=== PATIENT | female | born 2000 | race African-American/Black ===

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

== ENCOUNTER 2018-04-11 21:34 | Emergency (ER) | payer BC ==
[2018-04-11 21:55] VITALS: BP 141/76
[2018-04-11] MEDS ORDERED: FAMOTIDINE 20 MG TABLET PO ONE (22:24)
[2018-04-11] MEDS ORDERED: ASPIRIN 81 MG TABLET, CHEWABLE PO ONE (22:24)
--- NOTE | 2018-04-11 22:28 | ER Document Report ---
ED Cardiac - General Chief Complaint: Chest Pain Stated Complaint: CHEST PAIN Time Seen by Provider: 04/11/18 22:17 Notes: Patient is a 17-year-old female with a history of morbid obesity and congestive heart failure that comes emergency department for chief complaint of chest pain that is intermittent and over the left side of her chest and back for the past 3 -4 days. She states pain is worse with movement. She denies cough, nausea, vomiting, shortness of breath. She does report belching frequently. She is moving her bowels normally. She denies injury. She is compliant with her medications (lasix, metoprolol, metformin, synthroid). She denies smoking, alcohol, or recreational drugs. TRAVEL OUTSIDE OF THE [place] IN LAST 30 DAYS: No - Related Data Allergies/Adverse Reactions: No Known Allergies Allergy (Unverified 05/05/17 04:58) Past Medical History - General Information source: Patient - Social History Smoking Status: Never Smoker Frequency of alcohol use: None Drug Abuse: None Lives with: Family Family History: Reviewed & Not Pertinent - Past Medical History Cardiac Medical History: Reports: Hx Congestive Heart Failure, Hx Hypertension Endocrine Medical History: Reports: Hx Diabetes Mellitus Type 2 Renal/ Medical History: Denies: Hx Peritoneal Dialysis Past Surgical History: Reports: Hx Orthopedic Surgery - left leg - Immunizations Immunizations up to date: Yes Hx Diphtheria, Pertussis, Tetanus Vaccination: Yes Review of Systems - Review of Systems Constitutional: No symptoms reported EENT: No symptoms reported Cardiovascular: See HPI Respiratory: No symptoms reported Gastrointestinal: See HPI Genitourinary: No symptoms reported Female Genitourinary: No symptoms reported Musculoskeletal: See HPI Skin: No symptoms reported Hematologic/Lymphatic: No symptoms reported Neurological/Psychological: No symptoms reported Physical Exam - Vital signs Vitals: Temp Pulse Resp BP Pulse Ox 98.7 F 69 20 141/76 H 98 04/11/18 21:53 04/11/18 21:53 04/11/18 21:53 04/11/18 21:53 04/11/18 21:53 - General General appearance: Appears well In distress: None - HEENT Head: Normocephalic, Atraumatic Eyes: Normal Conjunctiva: Normal Extraocular movements intact: Yes Eyelashes: Normal Pupils: PERRL Mouth/Lips: Normal Mucous membranes: Normal Pharynx: Normal Neck: Normal - Respiratory Respiratory status: No respiratory distress Chest status: Pain on movement Breath sounds: Normal. No: Decreased air movement, Rales, Wheezing - Cardiovascular Rhythm: Regular. No: Tachycardia Heart sounds: Normal auscultation, S1 appreciated, S2 appreciated - Abdominal Inspection: Normal Tenderness: Nontender. No: Tender, McBurney's point, Fitzpatrick's sign, Guarding - Back Back: Normal, Nontender. No: Tender - Extremities General upper extremity: Normal inspection, Nontender, Normal ROM, Normal strength General lower extremity: Normal inspection, Nontender, Normal ROM, Normal strength. No: Edema - Neurological Neuro grossly intact: Yes Cognition: Normal Orientation: AAOx4 [place] Coma Scale Eye Opening: Spontaneous Artur Coma Scale Verbal: Oriented Artur Coma Scale Motor: Obeys Commands Artur Coma Scale Total: 15 Speech: Normal Cranial nerves: Normal Cerebellar coordination: Normal Motor strength normal: LUE, RUE, LLE, RLE Sensory: Normal - Psychological Associated symptoms: Normal affect, Normal mood - Skin Skin Temperature: Warm Skin Moisture: Dry Skin Color: Normal Course - Re-evaluation Re-evalutation: Patient is smiling and well-appearing on exam. Appears to have reproducible symptoms with her movements. She states her school backpack is very heavy, she also has non specific pains which are mild in her back with movement. No abdominal tenderness. No signs of distress. No tachycardia, hypotension, or fever. EKG shows sinus arrhythmia at a rate of 61. QTC is 419. HI interval is 200. Slightly inverted T-wave in lead III. No T-wave inversions or ST segment changes in consecutive leads. Patient with atypical symptoms going on for days, because of her multiple risk factors including severe obesity, CHF, type 2 diabetes a full cardiac workup was performed. Her heart score is 2. 2 sets of negative cardiac enzymes. Very low suspicion of PE, ACS, or dissection based on presentation, symptoms, workup. Discussed results with patient and parents. They request to be discharged home with treatment for her pain in her chest and back (which is mild). They do agree to follow-up with her button buttonhole marker on Saturday for additional evaluation and management. Discussed return precautions in detail, patient and family state understanding and agreement with plan. - Vital Signs Vital signs: Temp Pulse Resp BP Pulse Ox 98.7 F 69 16 141/76 H 97 05/11/18 21:53 04/11/18 21:53 04/12/18 02:00 04/11/18 21:53 04/12/18 02:00 - Laboratory Result Diagrams: 04/11/18 22:50 04/11/18 22:50 Laboratory results interpreted by me: 04/11/18 04/11/18 22:50 22:50 RDW 14.1 H Carbon Dioxide 32 H Discharge - Discharge Clinical Impression: Chest wall pain Chest pain Qualifiers: Chest pain type: unspecified Qualified Code(s): R07.9 - Chest pain, unspecified Condition: Stable Disposition: HOME, SELF-CARE Additional Instructions: Your workup tonight does not show any concerning findings. Your symptoms, exam, and workup are most suggestive of your chest wall being the cause of your pain. Use a muscle relaxer as prescribed if needed, you can apply heat to your chest wall. This should gradually resolve. Follow-up with your button buttonhole marker on Saturday for close follow-up and additional management. Return for any concerning or worsening symptoms including passing out, difficulty breathing, increased pain, or any other concerning or worsening symptoms. Prescriptions: Methocarbamol [Robaxin 750 mg Tablet] 750 mg PO Q6 #20 tablet Referrals: SHAHID FORREST DO [Primary Care Provider] - Follow up as needed
[2018-04-11 23:00] LABS: ABSOLUTE EOSINOPHILS # (AUTO) 0.1 10^3/uL (0.0-0.6); ABSOLUTE LYMPHOCYTES (AUTO) 2.9 10^3/uL (0.5-4.7); ABSOLUTE MONOCYTES (AUTO) 0.8 10^3/uL (0.1-1.4); ABSOLUTE NEUT (AUTO) 3.4 10^3/uL (1.7-8.2); BASOPHILS % (AUTO) 0.5 % (0-2); EOSINOPHILS % (AUTO) 1.2 % (0-6); HEMATOCRIT 38.3 % (36.0-47.0); HEMOGLOBIN 12.8 g/dL (12.0-15.5); LYMPHOCYTES % (AUTO) 39.7 % (13-45); MEAN CORPUSCULAR HEMOGLOBIN 28.4 pg (27.0-33.4); MEAN CORPUSCULAR HGB CONC 33.5 g/dL (32.0-36.0); MEAN CORPUSCULAR VOLUME 85 fl (80-97); MONOCYTES % (AUTO) 11.4 % (3-13); PLATELET COUNT 223 10^3/uL (150-450); RED BLOOD COUNT 4.53 10^6/uL (3.72-5.28); RED CELL DISTRIBUTION WIDTH 14.1 % (11.5-14.0); SEGMENTED NEUTROPHILS % (AUTO) 47.2 % (42-78); TOTAL CELLS COUNTED % (AUTO) 100 %; WHITE BLOOD COUNT 7.3 10^3/uL (4.0-10.5)
--- NOTE | 2018-04-11 23:00 | RADIOLOGY REPORT (SQ) ---
EXAM DESCRIPTION: XR CHEST 1 VIEW CLINICAL HISTORY: 17 years Female, chest pain COMPARISON: None. NUMBER OF VIEWS/TECHNIQUE: 1/AP FINDINGS: Adequate lung volume, clear parenchyma, mildly enlarged cardiac silhouette, and intact bony thorax. IMPRESSION: Mildly enlarged cardiac silhouette.
[2018-04-11 23:20] LABS: ALANINE AMINOTRANSFERASE 31 U/L (5-35); ALBUMIN 3.8 g/dL (3.7-5.6); ALKALINE PHOSPHATASE 72 U/L (50-135); ANION GAP 8 (5-19); ASPARTATE AMINO TRANSFERASE 19 U/L (5-30); BILIRUBIN,DIRECT 0.3 mg/dL (0.0-0.4); BILIRUBIN,TOTAL 0.3 mg/dL (0.2-1.3); BLOOD UREA NITROGEN 14 mg/dL (7-20); CALCIUM 9.5 mg/dL (8.4-10.2); CARBON DIOXIDE 32 mmol/L (22-30); CHLORIDE 102 mmol/L (98-107); CREATINE KINASE 89 U/L (30-135); GLUCOSE 93 mg/dL (75-110); SODIUM 142.2 mmol/L (137-145); TOTAL PROTEIN 7.7 g/dL (6.3-8.2)
[2018-04-11 23:37] LABS: CREATINE KINASE MB < 0.22 ng/mL (<4.55); TROPONIN I < 0.012 ng/mL
--- NOTE | 2018-04-12 08:43 | EKG REPORT ---
SEVERITY:- BORDERLINE ECG - SINUS ARRHYTHMIA, RATE 52-69 BORDERLINE T ABNORMALITIES, INFERIOR LEADS : Confirmed by: Isra Ojeda MD 12-Apr-2018 08:42:57
== END 2018-04-12 02:23 | disposition home or self-care (01) ==
LOC: ER 21:34
DX: R07.89 Other chest pain (principal); R14.2 Eructation; M54.9 Dorsalgia, unspecified; I11.0 Hypertensive heart disease with heart failure; I50.9 Heart failure, unspecified; Z79.899 Other long term (current) drug therapy; E11.9 Type 2 diabetes mellitus without complications; Z79.84 Long term (current) use of oral hypoglycemic drugs; E66.01 Morbid (severe) obesity due to excess calories; Z68.45 Body mass index [BMI] 70 or greater, adult; I49.9 Cardiac arrhythmia, unspecified
CPT/HCPCS: 36415; 71045; 80053; 82550; 82553; 84484; 84703; 85025; 93005; 93010; 99285